=== PATIENT | male | born 1965 | race Caucasian/White ===

== ENCOUNTER 2020-01-06 13:58 | Emergency (ER) | payer BC, SELFPAY ==
[2020-01-06 13:59] VITALS: BP 131/77; PULSE 130; RESP 16; TEMP 36.2; O2SAT 96; BMI 30.8
[2020-01-06 14:49] LABS: Absolute Lymphocyte Count 2.69 X10^3/uL (0.83-4.51); Absolute Neutrophil Count 5.5 X10^3/uL (2.0-7.7); Basophil# 0.08 X10^3/uL; Basophil% 0.8 % (0-1); Eosinophil# 0.14 X10^3/uL; Eosinophils% 1.4 % (0-5); Hematocrit 38.3 % (40-54); Hemoglobin 11.7 g/dL (13.0-16.5); Lymphocyte # 2.69 X10^3/ul (4.0); Lymphocyte % 26.4 % (19-41); Mean Corp Hgb Conc 30.5 g/dL (32-36); Mean Corpuscular Hgb 25.8 pg (27.0-32.0); Mean Corpuscular Volume 84.5 fL (80-94); Mean Platelet Vol. 8.6 fl (6.2-12.0); Monocyte% 17.6 % (0-10); NRBC Flagged by Analyzer 0 % (0-5); Neutrophil # 5.45 X10^3/uL (2.7-7.7); Neutrophil % 53.4 % (47-70); POSITIVE DIFFERENTIAL YES; Platelet Count 690 K/mm3 (150-450); RBC Distribution Width CV 16.2 % (11.6-14.6); RBC Distribution Width SD 49.3 fl (35.1-43.9); Red Blood Count 4.53 M/mm3 (4.6-6.2); White Blood Count 10.2 K/mm3 (4.4-11.0)
[2020-01-06 14:56] LABS: Anion Gap 6 (5-15); BUN 11 mg/dL (7-18); BUN/Creat Ratio 8.3 RATIO (10-20); Calcium,Total 9.6 mg/dL (8.5-10.1); Chloride 106 mmol/L (98-107); Creatinine, Serum 1.33 mg/dL (0.70-1.30); EST Glomerular Filtration Rate 60 mL/min (>60); Est Glom Filt Rate - Afr Amer 72 mL/min (>60); Estimated Creatinine Clearance 73.82 ml/min; Glucose 117 mg/dL (74-106); Potassium 3.3 mmol/L (3.5-5.1); Sodium Level 139 mmol/L (136-145)
[2020-01-06 15:05] LABS: Differential Indicated SCAN CRITERIA MET
--- NOTE | 2020-01-06 15:47 | ED.VISSUMM ---
- ER Visit Summary Date of Service: 01/06/20 Chief Complaint: Diarrhea and rectal bleeding History of Present Illness: The patient is a 54 M who presents with diarrhea and rectal bleeding that is been getting worse over the past few days. Patient states this is worse whenever he drinks water. Patient states he can feel the water going through him. Patient states he has had some rectal bleeding but states he has a history of hemorrhoids. Patient also states he has a history of ulcerative colitis. Patient denies any urinary complaints. Patient denies any abdominal pain. Patient admits to some nausea but denies any vomiting. Patient denies any chest pain or shortness of breath. Patient denies any lightheadedness or dizziness. Physical Examination: Vital signs are stable except for mild tachycardia of 130. Patient is afebrile. Patient is in no acute distress. Oral mucosa is pink and moist. Neck is supple. Trachea is midline. There is no JVD. Heart was regular and tachycardic. Lungs are clear and equal bilaterally. Abdomen is soft. Bowel sounds are normal. There is no tenderness. There is no rebound or guarding noted. Cranial nerves II through XII are intact. There are no focal motor or sensory deficits noted. Extremities are intact. There is no calf tenderness or edema. Patient is able to ambulate without difficulty. Test Results: CBC showed a slight anemia with a hemoglobin of 11.7. Basic metabolic profile was essentially within normal limits. Emergency Department Course and Treatment: Patient was on IV fluids. Patient was given his first dose of prednisone here. Patient was given a prescription for prednisone. Patient was instructed to follow-up with his primary care physician in 5 to 7 days. Patient states he sees a surgeon for his colonoscopies. Patient was instructed to follow-up with his surgeon. Patient understood and was agreeable with the plan. All questions were answered. Disposition: Discharge home Impression: 1. Rectal bleeding 2. History of ulcerative colitis 3. History of hemorrhoids This note was generated with [employer] dictation software. It may contain incorrect words, spelling, and punctuation that were not noted in review of the chart prior to signing ED Disposition - Plan for ED Patient: Disposition: Home or Assisted Living Diagnosis: Rectal bleeding Instructions: ED Hematochezia Stable, ED Hemorrhoids Prescriptions: Prednisone [Deltasone] 60 mg PO DAILY #15 tab Prescription Printed Referrals: Ani Mejia PA [NON-STAFF] - 5-7 Days
[2020-01-06] MEDS: predniSONE 20 MG Tablet 60 MG PO (16:12)
[2020-01-06] MEDS: 0.9% Normal Saline 1,000 ML 1000 ML IV (16:17)
[2020-01-06 16:19] VITALS: RESP 17
== END 2020-01-06 19:14 | disposition home or self-care (01) ==
PROVIDERS: Emergency Provider Emergency Medicine
DX: K62.5 Hemorrhage of anus and rectum (principal); R19.7 Diarrhea, unspecified; Z87.19 Personal history of other diseases of the digestive system
CPT/HCPCS: 80048; 85025; 96360; 99283; J7030; A4216